=== PATIENT | male | born 2000 | race Caucasian/White ===

== ENCOUNTER 2021-05-16 11:53 | Outpatient (REF) | payer MEDICAID, SELFPAY ==
[2021-05-16 13:41] LABS: HCT 41.7 % (40.0-50.0); HGB 14.2 g/dL (13.5-17.5); MCH 31.1 pg (27.0-33.0); MCHC 34.1 % (32.0-36.0); MCV 91.2 fL (80-95); MPV 12.4 fL (8.0-11.0); Platelet Count 218 10^3/uL (130-400); RBC 4.57 10^6/uL (4.36-5.78); RDW-SD 43.8 fL; WBC 6.29 10^3/uL (4.4-10.8)
[2021-05-16 14:02] LABS: ALT 18 U/L (16-63); AST 18 U/L (15-37); Albumin 4.6 g/dL (3.4-5.0); Alkaline Phosphatase 84 U/L (46-116); Anion Gap 7.5 mmol/L (3-11); BUN 11 mg/dL (7-18); Bilirubin, Total 0.5 mg/dL (0.2-1.0); CO2 30.5 mmol/L (21.0-32.0); Calcium 9.5 mg/dL (8.5-10.1); Chloride 104 mmol/L (98-107); Glucose 92 mg/dL (74-106); Lipase 106 U/L (73-393); Potassium 4.7 mmol/L (3.5-5.1); Sodium 142 mmol/L (136-145); TSH (W/Ref FT4) 0.74 uIU/mL (0.36-3.74); Total Protein 7.2 g/dL (6.4-8.2)
[2021-05-21 14:24] LABS: IgA 82 mg/dL (85-499); Interpretation (See Note); Tissue Transglutaminase IgA <1.2 U/mL (<4.0)
== END 2021-05-16 11:54 | disposition home or self-care (01) ==
LOC: NCHCN 11:53
PROVIDERS: PCP Family Medicine; Visit Provider Family Medicine
DX: R10.9 Unspecified abdominal pain (principal); R11.0 Nausea; Z13.29 Encounter for screening for other suspected endocrine disorder
CPT/HCPCS: 80053; 82784; 83516; 83690; 85027; 84443

== ENCOUNTER 2021-06-22 16:08 | Outpatient (REF) | payer MEDICAID, SELFPAY ==
[2021-06-28 09:31] LABS: IgG 787 mg/dL (610-1,616)
[2021-06-29 19:16] LABS: Gliadin (Deamidated) Ab, IgG <10.0 U
== END 2021-06-22 16:09 | disposition home or self-care (01) ==
LOC: NCHCN 16:08
PROVIDERS: PCP Family Medicine; Visit Provider Family Medicine
DX: R10.9 Unspecified abdominal pain (principal); R11.0 Nausea
CPT/HCPCS: 82784; 83516